=== PATIENT | female | born 1980 | race Caucasian/White ===

== ENCOUNTER 2019-04-12 19:33 | Emergency (ER) | payer MEDICAID ==
[~2019-04-12] VITALS: Ht 154.9 cm; Wt 71.0 kg
[~2019-04-12 19:33] MED LIST: AZIT250T PO; IBUP-1542 PO
[2019-04-12 19:36] VITALS: BP 128/74; PULSE 95; RESP 18; Ht 154.9 cm; Wt 71.0 kg
[2019-04-12] MEDS ORDERED: D-ME473S2 PO (20:26)
[2019-04-12] MEDS ORDERED: AZIT250T PO (20:26)
[2019-04-12] MEDS ORDERED: IBUP-1542 PO (20:26)
--- NOTE | 2019-04-12 20:28 | ERD ---
ER Documentation Chief Complaint Chief Complaint cough x 10 days. HPI 38-year-old female presents with productive cough for last 10 days. She has right ear pain as well. She has anterior pleuritic chest pain but no shortness of breath, hemoptysis, vomiting, abdominal pain. She denies asthma, cardiac conditions. ROS All systems reviewed and are negative except as per history of present illness. Medications Home Meds Active Scripts Ibuprofen* (Motrin*) 600 Mg Tab, 600 MG PO Q6, #15 TAB Prov:JOSUÉ HOUSTON MD 04/12/19 Dextromethorphan Hb-Promethazine Hcl* (Promethazine DM* Syrup) 473 Ml Syrup, 5 ML PO Q6 PRN for COUGH for 5 Days, ML Prov:JOSUÉ HOUSTON MD 04/12/19 Azithromycin* (Zithromax*) 250 Mg Tablet, 250 MG PO .ZPACK DIRECTED, #6 TAB TAKE 500 MG (2 TABS) THE FIRST DAY THEN 250 MG (1 TAB) DAYS 2-5 Prov:JOSUÉ HOUSTON MD 04/12/19 Ibuprofen* (Motrin*) 600 Mg Tab, 600 MG PO Q6H PRN for PAIN AND OR ELEVATED TEMP, #30 TAB Prov:ANTONINO JAMA MD 12/12/15 Azithromycin* (Zithromax*) 250 Mg Tablet, 250 MG PO .ZPACK DIRECTED, #6 TAB TAKE 500 MG (2 TABS) THE FIRST DAY THEN 250 MG (1 TAB) DAYS 2-5 Prov:ANTONINO JAMA MD 12/12/15 Allergies Allergies: Coded Allergies: No Known Allergy (Unverified , 12/19/14) PMhx/Soc Medical and Surgical Hx: pt denies Medical Hx, pt denies Surgical Hx Hx Alcohol Use: No Hx Substance Use: No Hx Tobacco Use: No Smoking Status: Never smoker FmHx Family History: No diabetes, No coronary disease, No other Physical Exam Vitals Vital Signs Date Temp Pulse Resp B/P (MAP) Pulse Ox O2 O2 Flow FiO2 Time Delivery Rate 04/12/19 98.6 95 18 128/74 96 19:36 (92) Physical Exam Const: No acute distress Head: Atraumatic Eyes: Normal Conjunctiva ENT: Normal External Ears, Nose and Mouth. TMs and oropharynx normal. Neck: Full range of motion. No meningismus. Resp: Clear to auscultation bilaterally. Rhonchi without rales, wheezing or retractions. Cardio: Regular rate and rhythm, no murmurs Abd: Soft, non tender, non distended. Normal bowel sounds Skin: No petechiae or rashes Back: No midline or flank tenderness Ext: No cyanosis, or edema Neur: Awake and alert Psych: Normal Mood and Affect Procedures/MDM Patient presents with 1 week to 10 days worsening productive cough. She has no signs of hypoxemia, pneumonia, respiratory distress, abdominal pain, cardiac chest pain. She will be treated empirically with Zithromax, Promethazine DM, ibuprofen, primary care follow-up and return precautions. The patient was stable with no new complaints during the ER course. Clinically, there is no current evidence to suggest meningitis, sepsis, acute abdomen, pneumonia, stroke, acute coronary syndrome, pulmonary embolism, aortic dissection or any other emergent condition appearing to require further evaluation or hospitalization. Patient counseled regarding my diagnostic impression and care plan. Prior to discharge all questions answered. Pt agrees with treatment plan and understands strict return precautions. Pt is instructed to follow up with primary care provider within 24-48 hours. Precautionary instructions provided including instructions to return to the ER if not improving or for any worsening or changing symptoms or concerns. Disclaimer: Inadvertent spelling and grammatical errors are likely due to EHR/dictation software use and do not reflect on the overall quality of patient care. Also, please note that the electronic time recorded on this note does not necessarily reflect the actual time of the patient encounter. Departure Diagnosis: Primary Impression: Cough Condition: Stable Patient Instructions: Bronchitis, Antiobiotic Treatment (Adult) Additional Instructions: Cheque otro vez con kumar doctor primario en el proximo [place] or regresa para mas o nueva simptomas. JOSUÉ HOUSTON MD April 12, 2019 20:28
== END 2019-04-12 20:41 | disposition home or self-care (01) ==
LOC: FTE 19:33
DX: R05 Cough (principal)
CPT/HCPCS: 99283